=== PATIENT | female | born 2005 | race Caucasian/White ===

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

== ENCOUNTER 2024-04-07 19:36 | Emergency (ER) | payer MEDICAID, SELFPAY ==
[2024-04-07 19:52] VITALS: BP 103/69; PULSE 120; RESP 10; TEMP 37.1
--- NOTE | 2024-04-07 20:15 | DI.CT_ITS ---
Exam(s) CT ABDOMEN PELVIS W EXAM: CT ABDOMEN PELVIS W CLINICAL HISTORY: RUQ pain, vomiting, s/p cholecystectomy. TECHNIQUE: Imaging Protocol: Axial computed tomography images with coronal and sagittal reformatted images were created and reviewed CONTRAST MATERIAL: Intravenous: Omnipaque 350 Contrast volume:80 ml Oral: / no COMPARISON: No exams were available for comparison FINDINGS: ABDOMEN and PELVIS: Lung Bases: No acute findings. Liver: Normal density. No suspicious mass. Gallbladder and biliary tract: Status post cholecystectomy. No biliary dilation. Pancreas: Normal density. No abnormal calcifications or inflammatory process. No evidence of mass. Spleen: Normal. Kidneys: Normal size, contour and axis. No radiodense stones. No obstructive uropathy. No suspicious masses seen. Adrenal glands: No masses seen. Vasculature: Abdominal aorta non-dilated. Soft tissues: Air bubbles in the right lower quadrant abdominal musculature consistent with recent la paroscopic procedure. Other bubbles of air seen in the right upper quadrant anterior to the level of the liver, also in the abdominal wall musculature. Small collection seen in the midline superiorly in the subxiphoid region containing air which could represent a developing abscess. It measures 2.0 x 1.2 x 2.3 cm. Bladder: Nearly empty. No calculi.No focal mass. Bowel: No obstruction. No bowel wall thickening. Appendix normal. Peritoneal cavity: No ascites. No focal collection. No mesenteric inflammatory response. Bones: Unremarkable for age. Reproductive organs: Unremarkable. Lymph nodes: No pathologically enlarged lymph nodes. IMPRESSION:: Status post laparoscopic cholecystectomy. Small collection in the subxiphoid region wh ich could represent developing abscess. No acute intra-abdominal abnormality. RADIATION DOSE DELIVERED: 181.65mGy.cm Total DLP DATA REPOSITORY: All CT scans at this facility are submitted to the National Radiology Data Registry (NRDR) Dose Index Registry (DIR) with the [employer] (ACR). RADIATION OPTIMIZATION: All CT scans at this facility use at least one of these dose optimization te chniques: automated exposure control; mA and/or kV adjustment per patient size (includes targeted exa ms where dose is matched to clinical indication); or iterative reconstruction.
[2024-04-07] MEDS: ACETAMINOPHEN 1,000 MG/100 ML BTL 400 MG IVPB (20:31)
[2024-04-07] MEDS: Prochlorperazine 10 MG/2 ML VIAL 5 MG IVP (20:32)
[2024-04-07] MEDS: Normal Saline 1,000 ML 1000 ML IV (20:32)
[2024-04-07 20:34] LABS: Abs Immature Grans 0.03 10^3/uL (0.0-0.06); Absolute Basophil Count 0.03 10^3/uL (0.0-0.2); Absolute Eosinophil Count 0.19 10^3/uL (0.0-0.7); Absolute Lymphocyte Count 1.38 10^3/uL (1.2-3.4); Absolute Monocyte Count 0.56 10^3/uL (0.1-0.8); Absolute Neutrophil Count 7.96 10^3/uL (1.2-6.7); Basophils % 0.3 %; Eosinophils % 1.9 %; HCT 40.4 % (36.0-46.0); HGB 13.3 g/dL (11.2-15.7); Immature Grans % 0.3 %; Lymphocytes % 13.6 %; MCH 30.9 pg (27.0-33.0); MCHC 32.9 % (32.0-36.0); MCV 94 fL (80-95); MPV 9.9 fL (8.0-11.0); Monocytes % 5.5 %; Neutrophils % 78.4 %; Platelet Count 288 10^3/uL (130-400); RDW 13.2 % (11.7-14.6); RDW-SD 44.9 fL; WBC 10.15 10^3/uL (4.4-10.8)
[2024-04-07 20:46] LABS: ALT 17 U/L (14-59); AST 18 U/L (15-37); Albumin 3.6 g/dL (3.4-5.0); Alkaline Phosphatase 54 U/L (46-116); Anion Gap 7.9 mmol/L (3-11); BUN 15 mg/dL (7-18); CO2 29.1 mmol/L (21.0-32.0); CREATININE 0.7 mg/dL (0.55-1.02); Calcium 9.3 mg/dL (8.5-10.1); Chloride 102 mmol/L (98-107); Estimated GFR 127.69 (mL/min/1.73m2); Glucose 90 mg/dL (74-106); Lipase 22 U/L (16-77); Potassium 3.6 mmol/L (3.5-5.1); Sodium 139 mmol/L (136-145); Total Protein 7.2 g/dL (6.4-8.2)
[2024-04-07 20:57] LABS: HCG Qual (Serum) Negative
[2024-04-07] MEDS: diphenhydrAMINE 50 MG/ML VIAL 25 MG IVP (20:57)
[2024-04-07] MEDS: Normal Saline - Diluent 50 ML VIAL IV (21:01)
[2024-04-07] MEDS: Omnipaque 350 MG/ML 100 ML BTL IJ (21:02)
[2024-04-07 21:17] LABS: Bilirubin Small (Negative); Blood Negative (Negative); Clarity Clear (Clear); Glucose Negative (Negative); Ketones 40 mg/dL (Negative); Leukocyte Esterase Negative (Negative); Nitrite Negative (Negative); Specific Gravity >= 1.030 (1.005-1.025); Urobilinogen 0.2 mg/dL (Up to 0.2); pH 6.5 (5-8)
--- NOTE | 2024-04-07 21:19 | W.ED.GENAD ---
Discharge Plan Disposition Patient Disposition: Home Condition: Stable Discharge Details Clinical Impression: Abscess, History of cholecystectomy Primary Care Provider: Marquise Ramirez ED Provider: Kourtney Bahena Home Meds and New Rx's Prescriptions: New ondansetron 4 mg tablet,disintegrating 4 mg PO DAILY 5 Days Qty: 5 0RF cephalexin 500 mg capsule 500 mg PO Q6H 7 Days Qty: 28 0RF ondansetron HCl 4 mg tablet 4 mg PO Q8H PRN3 Days Qty: 10 0RF cephalexin 500 mg capsule 500 mg PO Q6H 7 Days Qty: 28 0RF Continued albuterol 90 mcg/actuation aerosol inhalation fluticasone propionate 110 mcg/actuation HFA aerosol inhaler 2 inh inhalation BID albuterol sulfate 2.5 mg /3 mL (0.083 %) solution for nebulization 1.25 mg inhalation QID PRN Discharge Instructions Instructions: Skin Abscess Additional Instructions: Take Zofran as needed for nausea and vomiting Take ibuprofen and Tylenol as needed for pain take antibiotics as prescribed Follow-up with your surgeon tomorrow and return earlier should you have new or worsening complaints including fever, chills, or any new or worsening complaints Stand Alone Forms: Work Release Discharge Data Discharge Date/Time-TO BE ENTERED AT DEPARTURE: 04/07/24 23:57 HPI General Date/Time Provider Initiated Documentation: 04/07/24 20:04. HPI Narrative: Pleasant 17-year-old female presents status post cholecystectomy last week. States that she has had nausea vomiting abdominal pain since that time. Denies any fever or chills. Denies any chest pain or shortness of breath. Denies known exacerbating factors. Denies has had nausea and vomiting. Related Data Home Medications ?Medication ?Instructions ?Recorded ?Confirmed albuterol 90 mcg/actuation aerosol mcg inhalation 04/07/24 inhaler albuterol sulfate 2.5 mg/3 mL 1.25 mg inhalation QID PRN 04/07/24 04/07/24 (0.083 %) solution for nebulization cephalexin 500 mg capsule 500 mg PO Q6H 7 days #28 caps 04/07/24 cephalexin 500 mg capsule 500 mg PO Q6H 7 days #28 caps 04/07/24 fluticasone propionate 110 2 inh inhalation BID 04/07/24 04/07/24 mcg/actuation HFA aerosol inhaler ondansetron 4 mg disintegrating 4 mg PO DAILY 5 days #5 tabs 04/07/24 tablet ondansetron HCl 4 mg tablet 4 mg PO Q8H PRN 3 days #10 tabs 04/07/24 Previous Rx's ?Medication ?Instructions ?Recorded cephalexin 500 mg capsule 500 mg PO Q6H 7 days #28 caps 04/07/24 cephalexin 500 mg capsule 500 mg PO Q6H 7 days #28 caps 04/07/24 ondansetron 4 mg disintegrating 4 mg PO DAILY 5 days #5 tabs 04/07/24 tablet ondansetron HCl 4 mg tablet 4 mg PO Q8H PRN 3 days #10 tabs 04/07/24 Allergies Allergy/AdvReac Type Severity Reaction Status Date / Time bupropion (From Wellbutrin) Allergy Severe Anaphylaxis Verified 04/07/24 19:56 General Stated Complaint: Abd Prob TARA: 3 Exam Narrative Exam Narrative: This 18-year-old female is presenting with abdominal pain, nausea and vomiting. She is status post cholecystectomy, she has well-appearing laparoscopic sites but is endorsing pain along the laparoscopic site in the epigastrium. She has no CVA tenderness is alert and oriented in no acute distress she does not have significant rebound or guarding Course Vital Signs Vital signs: Vital Signs Temperature 37.1 C 04/07/24 19:52 Pulse 120 H 04/07/24 19:52 Respiratory Rate 10 L 04/07/24 19:52 Blood Pressure 103/69 04/07/24 19:52 Temperature 37.1 C 04/07/24 19:52 Temperature Source Oral 04/07/24 19:52 Pulse 120 H 04/07/24 19:52 Respiratory Rate 10 L 04/07/24 19:52 Respiratory Effort Normal 04/07/24 19:58 Blood Pressure 103/69 04/07/24 19:52 Pain Level 10 04/07/24 19:52 Comment abd to back 04/07/24 19:52 Lab/Test Results Lab/Test Results: Laboratory Tests Range/Units 04/07/24 20:25 WBC (4.4-10.8) 10^3/uL 10.15 RBC (3.93-5.22) 10^6/uL 4.30 Hgb (11.2-15.7) g/dL 13.3 Hct (36.0-46.0) % 40.4 MCV (80-95) fL 94 MCH (27.0-33.0) pg 30.9 MCHC (32.0-36.0) % 32.9 RDW (11.7-14.6) % 13.2 Plt Count (130-400) 10^3/uL 288 MPV (8.0-11.0) fL 9.9 Immature Gran % % 0.3 Neutrophils % % 78.4 Lymphocytes % % 13.6 Monocytes % % 5.5 Eosinophils % % 1.9 Basophils % % 0.3 Nucleated RBC % (0.0-0.3) % 0.0 Absolute Neutrophils (1.2-6.7) 10^3/uL 7.96 H Absolute Lymphocytes (1.2-3.4) 10^3/uL 1.38 Absolute Monocytes (0.1-0.8) 10^3/uL 0.56 Absolute Eosinophils (0.0-0.7) 10^3/uL 0.19 Absolute Basophils (0.0-0.2) 10^3/uL 0.03 Sodium (136-145) mmol/L 139 Potassium (3.5-5.1) mmol/L 3.6 Chloride (98-107) mmol/L 102 Carbon Dioxide (21.0-32.0) mmol/L 29.1 Anion Gap (3-11) mmol/L 7.9 BUN (7-18) mg/dL 15 Creatinine (0.55-1.02) mg/dL 0.7 Est GFR (CKD-EPI 2020) (mL/min/1.73m2) 127.69 Glucose (74-106) mg/dL 90 Calcium (8.5-10.1) mg/dL 9.3 Total Bilirubin (0.2-1.0) mg/dL 0.60 AST (15-37) U/L 18 ALT (14-59) U/L 17 Alkaline Phosphatase (46-116) U/L 54 Total Protein (6.4-8.2) g/dL 7.2 Albumin (3.4-5.0) g/dL 3.6 Lipase (16-77) U/L 22 Serum HCG, Qual Negative Medical Decision Making Alert and oriented 18-year-old female in no acute distress but tachycardic, given 1 L of fluids and antiemetics and pain medication, resting comfortably in room. She did have a reaction to the Compazine 5 mg and she was given 25 mg of Benadryl which is likely why she is tired. CAT scan is reassuring aside from a very small subcutaneous abscess which is possibly forming in the epigastrium, approximately 2 x 2 x 2. Labs without leukocytosis or evidence of electrolyte abnormality patient is not currently on antibiotics. I have a phone call out to the surgeon on-call in [place] where patient had her surgery performed. i would like to review the CT findings prior to discharging this patient with her surgeon. Discussed case with Dr. Neely, states will see patient in the office to examine for possible abscess as indicated on CT scan. Will place patient on Keflex, return precautions reviewed, stable vitals at time of reassessment. I think she stable for discharge home, I will write for antiemetics and encourage patient to continue with supportive care including Tylenol and ibuprofen at home. Quality:SDOH Health Related Social Needs: No Data to Display PFSH All Active Problems (Updated 04/07/24 @ 23:27 by TAVO Gonzalez) History of cholecystectomy (Chronic) Abscess (Acute) Social History Smoking/Tobacco Use Status: Former Tobacco Use Smoking risk assessment performed?: Yes Alcohol Intake: never Drug use: Daily Substance use type: marijuana Housing: house Do you feel safe at home: Yes Do you feel safe in your relationship?: Yes
--- NOTE | 2024-04-07 22:39 | DI.VRAD_ITS ---
Addendum created by Veto Garcia MD on 04/07/2024 10:39:52 PM EDT: ADDENDUM: Findings were discussed with Kourtney Bahena at 04/07/2024 10:36 PM EDT. The surgical history is clarified. The patient underwent a laparoscopic cholecystectomy 6 days ago. Initial report created on 04/07/2024 10:38:51 PM EDT: PROCEDURE INFORMATION: Exam: CT Abdomen And Pelvis With Contrast Exam date and time: 04/07/2024 9:08 PM Age: 18 years old Clinical indication: Vomiting; Abdominal pain; Other: Ruq pain; Prior surgery; Surgery date: 6+ months; Surgery type: S/P cholecysteomy; Additional info: Ruq pain, vomiting, S/P cholecysteomy TECHNIQUE: Imaging protocol: Computed tomography of the abdomen and pelvis with contrast. Contrast material: OMNI 350; Contrast volume: 80 ml; Contrast route: INTRAVENOUS (IV); COMPARISON: No relevant prior studies available. FINDINGS: Lungs: Lung bases are clear. Liver: Homogeneous liver parenchyma. No suspicious mass. Gallbladder and biliary ducts: The gallbladder is surgically absent. No significant fluid collection or fat stranding is observed in the gallbladder fossa. Negative for biliary ductal dilatation. Pancreas: Normal. No ductal dilation. Spleen: Normal. No splenomegaly. Adrenal glands: Normal. No mass. Kidneys and ureters: Symmetric enhancement. No hydronephrosis. Non-dilated ureters. No stones. Stomach and bowel: Unremarkable stomach. Small bowel is not dilated. Loops of small bowel are clumped in the pelvis, with mild wall thickening. The terminal ileum appears normal. Moderate stool burden noted in the colon. Fat planes around loops of small bowel are indistinct. There are no inflammatory changes observed around the colon. Appendix: A normal appendix is observed. Intraperitoneal space: Mild mesenteric fat stranding. Mild pelvic free fluid. Negative for free air. Negative for abscess. Vasculature: Normal abdominal aorta. No occlusion or stenosis in the superior mesenteric artery. Unremarkable inferior vena cava. Lymph nodes: Mesenteric lymph nodes are mildly prominent. No suspicious retroperitoneal lymphadenopathy. Urinary bladder: Collapsed. Reproductive: Unremarkable uterus. No significant adnexal mass or cyst. Bones/joints: No compression fractures. Transitional lumbosacral anatomy. Soft tissues: Foci of gas are noted in the intramuscular abdominal wall in the right upper quadrant anterior to the liver; see axial image 23 series 9. Additional foci of gas are noted between layers of the abdominal wall right of midline at the level of the umbilicus; see axial image 47 series 9. A small gas and fluid collection is present in the subcutaneous epigastric abdominal wall, 2.0 x 1.2 x 2.3 cm. See sagittal image 28 series 7. Additional subcutaneous fat stranding is noted across the anterior abdominal wall. There is no abdominal wall hernia. No intramuscular fluid collections are observed. No significant abdominal wall hernia. IMPRESSION: 1. Findings suggest enteritis. No bowel obstruction. No abscess. No appendicitis. 2. Foci of gas in the abdominal wall. Correlate for laparoscopic ports. Possible developing subcutaneous abscess in the subxiphoid/epigastric abdominal wall. Dictated and Authenticated by: Veto Garcia MD. Ordering:RUPINDER Oconnell MD
[2024-04-07 23:40] VITALS: BP 95/60; PULSE 74; RESP 18; TEMP 36.1; O2SAT 99
[2024-04-07] MEDS: Cephalexin 500 MG CAP, 4 CAPS/BTL PO (23:50)
== END 2024-04-07 23:57 | disposition home or self-care (01) ==
PROVIDERS: Emergency Provider Physician Assistant; PCP Internal Medicine
DX: R11.2 Nausea with vomiting, unspecified (principal); R10.9 Unspecified abdominal pain; M54.9 Dorsalgia, unspecified; L02.91 Cutaneous abscess, unspecified; Z98.890 Other specified postprocedural states
CPT/HCPCS: 80053; 83690; 96365; 96375; 99285; 74177; 81003; 84703; 85025; 99284; J0131; J0780; J1200; J3490

== ENCOUNTER 2025-04-05 13:55 | Emergency (ER) | payer MEDICAID, SELFPAY ==
[2025-04-05] VITALS (37 sets, daily range): BP systolic 111–150; BP diastolic 60–91; PULSE 80–119; RESP 8–28; TEMP 36.7; O2SAT 96–100
--- NOTE | 2025-04-05 14:00 | DI.CT_ITS ---
Exam(s) CT CHEST/ABD/PEL W EXAM: CT CHEST/ABD/PEL W CLINICAL HISTORY: trauma. TECHNIQUE: Imaging Protocol: Axial computed tomography images with coronal and sagittal reformatted images were created and reviewed CONTRAST MATERIAL: Intravenous: Omnipaque 350 Contrast volume:75 mL Oral: None COMPARISON: CT CT ABDOMEN PELVIS W from 04/07/2024 FINDINGS: CHEST: LUNGS: No evidence of lung contusion nor pleural effusion or pneumothorax. No incidental lung masses.. No obvious rib fractures. MEDIASTINUM: No evidence of sternal fracture nor mediastinal hematoma. Density in the anterior mediastinal fat is most probably remnant thymus in this age group. CARDIAC: Heart size is normal. There is no pericardial effusion.Thoracic aorta appears intact, as does the abdominal aorta. OSSEOUS: No rib fractures nor sternal fractures. No scapular fracture and visualized clavicles are intact. No vertebral fractures nor listhesis. ABDOMEN: There is no ascites. No evidence of bowel wall nor mesenteric hematoma. LIVER: Intact. No lacerations. No evidence of subcapsular hematoma. Small subcapsular hypodensity in the anterior right hepatic lobe is most probably an incidental hemangioma in this 19-year-old female patient. There is also a smaller 4 mm probable benign cyst in the right hepatic lobe GALLBLADDER/BILIARY: Gallbladder surgically absent. CBD is not dilated. PANCREAS: No evidence of pancreatic mass nor dilatation of the pancreatic duct. SPLEEN: Intact. No lacerations. Normal size. No lesions. Splenic and portal veins are patent. ADRENALS: There are no significant adrenal masses. KIDNEYS: Intact. No lacerations nor subcapsular hematomas. No cysts nor masses nor calculi nor hydronephrosis.. ABDOMINAL AORTA: Unremarkable. No aneurysm. No dissection. Aortoiliac segments also appear unremarkable. LYMPH NODES: There is no retroperitoneal nor paraaortic adenopathy. ABDOMINAL WALL: No significant subcutaneous bruising nor subcutaneous fluid collections. GI: There is no evidence of bowel obstruction.No evidence of bowel wall hematomas. PELVIS: LYMPH NODES: There is no intrapelvic nor inguinal adenopathy. GI: No evidence of appendicitis.No evidence of sigmoid diverticulitis. URINARY BLADDER: Nondistended. No intraluminal clots nor calculi nor obvious masses. REPRODUCTIVE: Age-appropriate appearance. OSSEOUS: No vertebral fractures nor rib fractures. No sacral fractures. SI joints appear unremarkable. IMPRESSION: 1. No significant acute trauma sequelae in the chest, abdomen, pelvis. 2. No fractures. 3. Small incidental hypodensity in the anterior right hepatic lobe is most probably a benign hemangioma in this 19-year-old female patient. Report called by myself to ER 04/05/2025 at 3:04 p.m. RADIATION DOSE DELIVERED: Total DLP DATA REPOSITORY: All CT scans at this facility are submitted to the National Radiology Data Registry (NRDR) Dose Index Registry (DIR) with the [employer] (ACR). RADIATION OPTIMIZATION: All CT scans at this facility use at least one of these dose optimization techniques: automated exposure control; mA and/or kV adjustment per patient size (includes targeted exams where dose is matched to clinical indication); or iterative reconstruction.
--- NOTE | 2025-04-05 14:08 | DI.CT_ITS ---
Exam(s) CT HEAD CERVICAL SPINE WO EXAM: CT HEAD CERVICAL SPINE WO CLINICAL HISTORY: trauma. TECHNIQUE: Imaging Protocol: Axial computed tomography images with coronal and sagittal reformatted images were created and reviewed COMPARISON: No exams were available for comparison FINDINGS: Head CT Ventricles and Extra axial spaces: Normal in size and morphology for the patient's age. Hemorrhage: None. Cerebral parenchyma: No evidence of mass or acute infarct. Midline shift: None. Brainstem/Cerebellum: Normal. Calvarium: Normal. Visualized Paranasal sinuses/Mastoids: Clear. Soft tissues: Large left frontal scalp hematoma Cervical Spine CT BONES: Vertebral body heights are maintained. Alignment is normal. There is no evidence of acute fracture. The disc spaces are maintained. SOFT TISSUES: No paraspinal hematoma. The airway appears intact. No pneumothorax is seen at the lung apices. IMPRESSION: Head CT: Large left frontal the [place]. No skull fracture or acute intracranial abnormality. C-spine CT:NO acute abnormality. RADIATION DOSE DELIVERED: 1,174.65mGy.cm Total DLP DATA REPOSITORY: All CT scans at this facility are submitted to the National Radiology Data Registry (NRDR) Dose Index Registry (DIR) with the [employer] (ACR). RADIATION OPTIMIZATION: All CT scans at this facility use at least one of these dose optimization techniques: automated exposure control; mA and/or kV adjustment per patient size (includes targeted exams where dose is matched to clinical indication); or iterative reconstruction.
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
[2025-04-05 14:18] LABS: Abs Immature Grans 0.01 10^3/uL (0.0-0.06); HCT 40.6 % (36.0-46.0); HGB 13.4 g/dL (11.2-15.7); Immature Grans % 0.1 %; MCH 30.7 pg (27.0-33.0); MCHC 33.0 % (32.0-36.0); MCV 93 fL (80-95); MPV 9.8 fL (8.0-11.0); Platelet Count 284 10^3/uL (130-400); RBC 4.36 10^6/uL (3.93-5.22); RDW 13.1 % (11.7-14.6); RDW-SD 44.6 fL; WBC 6.69 10^3/uL (4.4-10.8)
--- NOTE | 2025-04-05 14:30 | DI.RAD_ITS ---
Exam(s) XR WRIST LT COMPLETE EXAM: XR WRIST LT COMPLETE CLINICAL HISTORY: Left wrist pain. TECHNIQUE: 2D digital imaging was performed. COMPARISON: No exams were available for comparison FINDINGS: 3 views No evidence of acute fracture or dislocation nor significant ulnar variance. Scaphoid and scapholunate distance unremarkable. No radiopaque foreign bodies. There is no gas in the soft tissues. IMPRESSION: No acute osseous findings in the left wrist. DATA REPOSITORY: RADIATION DOSE DELIVERED:
--- NOTE | 2025-04-05 14:30 | DI.RAD_ITS ---
Exam(s) XR HAND LT COMPLETE EXAM: XR HAND LT COMPLETE CLINICAL HISTORY: Left hand pain. TECHNIQUE: 2D digital imaging was performed. COMPARISON: No exams were available for comparison FINDINGS: 3 views No evidence of fracture or dislocation no abnormal soft tissue calcifications nor soft tissue densities. No soft tissue gas. Bone density normal. No osseous lesions. IMPRESSION: No acute osseous findings in the left hand. DATA REPOSITORY: RADIATION DOSE DELIVERED:
[2025-04-05 14:35] LABS: Anion Gap 8.8 mmol/L (3-11); BUN 21 mg/dL (7-18); CO2 28.2 mmol/L (21.0-32.0); Calcium 8.8 mg/dL (8.5-10.1); Chloride 105 mmol/L (98-107); Estimated GFR 82.71 (mL/min/1.73m2); Glucose 133 mg/dL (74-106); Potassium 3.3 mmol/L (3.5-5.1); Sodium 142 mmol/L (136-145)
[2025-04-05] MEDS: Ondansetron 4 MG/2 ML VIAL IVP (14:35)
[2025-04-05 14:38] LABS: HCG Qual (Serum) Negative
[2025-04-05] MEDS: Normal Saline 1,000 ML 1000 ML IV (15:02)
[2025-04-05] MEDS: fentaNYL 100 MCG/2 ML VIAL 75 MCG IVP (15:02)
[2025-04-05] MEDS: Normal Saline - Diluent 50 ML VIAL IJ (15:10)
[2025-04-05] MEDS: Normal Saline Flush 10 ML SYR IVP (15:10)
[2025-04-05] MEDS: Omnipaque 350 MG/ML 100 ML BTL IJ (15:10)
--- NOTE | 2025-04-05 15:11 | DI.CT_ITS ---
Exam(s) CT THORACIC LUMBAR SPINE REC EXAM: CT THORACIC LUMBAR SPINE REC CLINICAL HISTORY: trauma TECHNIQUE: COMPARISON: CT CT CHEST/ABD/PEL W from 04/05/2025 FINDINGS: THORACIC SPINAL COLUMN: No evidence of fracture or listhesis nor significant disc space narrowing. Facet joints unremarkable. No malalignment. There is no acute compromise of the thoracic spinal canal. LUMBOSACRAL SPINAL COLUMN: No evidence of fracture, listhesis, nor pars interarticularis defects. No acute compromise of the lumbosacral spinal canal. No obvious disc herniations. Facet joints appear unremarkable. No significant osseous lesions. Also no fractures in the sacrum and SI joints appear intact. IMPRESSION: No fractures in the thoracic and lumbosacral spinal columns.
[2025-04-05] MEDS: Acetaminophen 325 MG TAB 650 MG PO (15:56)
[2025-04-05] MEDS: Ketorolac 15 MG/ML VIAL IVP (16:48)
[2025-04-05] MEDS: Ondansetron O.D.T. 4 MG TABEF PO (16:48)
== END 2025-04-05 18:34 | disposition home or self-care (01) ==
PROVIDERS: Emergency Provider Emergency Medicine; PCP Internal Medicine
DX: S00.03XA Contusion of scalp, initial encounter (principal); R93.2 Abnormal findings on diagnostic imaging of liver and biliary tract; M25.532 Pain in left wrist; M79.645 Pain in left finger(s); V49.49XA Driver injured in collision with other motor vehicles in traffic accident, initial encounter
CPT/HCPCS: 74177; 80048; 86850; 86900; 86901; 96361; 96374; 96375; 99284; 70450; 71260; 72125; 73110; 73130; 84703; 85025; J1885; J2405; J3010; J3490